=== PATIENT | male | born 1955 | race Caucasian/White ===

== ENCOUNTER 2022-11-22 13:11 | Outpatient (CLI) | payer MEDICARE, OTHER | END 2022-11-22 13:12 | disposition home or self-care (01) | LOC: CSHRAD 13:11 | PROVIDERS: ATTEND Internal Medicine | DX: M25.551 Pain in right hip (principal); M16.12 Unilateral primary osteoarthritis, left hip; M47.816 Spondylosis without myelopathy or radiculopathy, lumbar region | CPT/HCPCS: 72100 ==